=== PATIENT | male | born 1995 | race Caucasian/White ===

== ENCOUNTER 2023-01-01 17:23 | Emergency (ER) | payer OTHER ==
[2023-01-01] MEDS ORDERED: SODIUM CHLORIDE 0.9% 1000 ML INFUS.BAG IV ONE (17:33)
[2023-01-01] MEDS ORDERED: ONDANSETRON 4 MG/2 ML VIAL IVPUSH ONE (17:33)
[2023-01-01 17:53] VITALS: BP 103/61; PULSE 103; RESP 16; TEMP 98.3; BMI 25.0
[2023-01-01 18:10] LABS: HEMATOCRIT 43.3 % (35.4-49); HEMOGLOBIN 15.3 G/dL (11.7-16.9); MCH 31.6 pg (25.7-33.7); MCHC 35.2 g/dl (32.0-35.9); MEAN CELL VOLUME 89.6 fl (80-96); MEAN PLT VOLUME 8.3 fl (7.5-11.1); PLATELET COUNT 149.5 10^3/uL (134-434); RBC 4.83 10^6/uL (4.00-5.60); RDW 13.3 % (11.9-15.9); WHITE BLOOD COUNT 6.4 10^3/uL (4.0-10.8)
[2023-01-01 18:19] LABS: ALBUMIN 4.3 g/dl (3.4-5.0); BILIRUBIN,TOTAL 0.9 mg/dl (0.2-1); BLOOD UREA NITROGEN 16.4 mg/dl (7-18); CALCIUM 8.5 mg/dl (8.5-10.1); CREATININE 1.1 mg/dl (0.6-1.3); POTASSIUM 3.8 mmol/L (3.5-5.1); SGOT/AST 16.1 U/L (15-37); SGPT/ALT 12.8 U/L (7-52); TOT PROT 6.3 g/dl (6.4-8.2)
[2023-01-01 22:37] LABS: PLATELET ESTIMATE ADEQUATE
== END 2023-01-01 19:21 | disposition home or self-care (01) ==
LOC: FER 17:23
PROC: 3E033GC Introduction of Other Therapeutic Substance into Peripheral Vein, Percutaneous Approach (ICD-10-PCS; principal; 2023-01-01)
DX: R11.2 Nausea with vomiting, unspecified (principal); R19.7 Diarrhea, unspecified; R50.9 Fever, unspecified; A08.4 Viral intestinal infection, unspecified
CPT/HCPCS: 36415; 80053; 83690; 85027; 99284-25